=== PATIENT | male | born 1955 | race Caucasian/White ===

== ENCOUNTER 2020-03-19 18:10 | Emergency (ER) | payer BC, SELFPAY ==
[~2020-03-19] VITALS: Ht 160 cm; Wt 81.6 kg
[2020-03-19 18:40] VITALS: BP_SYST 171
[2020-03-19 19:34] VITALS: BP_SYST 171
== END 2020-03-19 19:34 | disposition home or self-care (01) ==
LOC: SED 18:10
DX: U07.1 COVID-19 (principal); R05 Cough; M79.18 Myalgia, other site
CPT/HCPCS: 99283; C9803; U0003